=== PATIENT | male | born 1960 | race Caucasian/White ===

== ENCOUNTER → 2023-05-27 09:20 | Outpatient (REF) | payer BC, SELFPAY | LOC: HWRAD 09:20 | PROVIDERS: ATTENDING PHYSICIAN Specialist; FAMILY PHYSICIAN Nurse Practitioner Family | DX: R35.1 Nocturia (principal); R31.29 Other microscopic hematuria | CPT/HCPCS: 76770 ==

== ENCOUNTER 2023-07-12 06:48 | Day surgery (SDC) | payer BC, SELFPAY ==
[2023-07-06 08:15] VITALS: BMI 31.8
[2023-07-06 08:56] LABS: Urine Albumin Negative (Neg - Trace); Urine Bilirubin Negative (Negative); Urine Character Clear (Clear); Urine Color Yellow; Urine Glucose Negative (Negative); Urine Ketone Negative (Negative); Urine Leukocyte Negative (Negative); Urine Nitrite Negative (Negative); Urine Occult Blood Negative (Negative); Urine Urobilinogen Negative (Neg - 1+)
[2023-07-06 09:19] LABS: INR 1.04; PT 13.6 Sec (11.4-14.6)
[2023-07-06 09:20] LABS: APTT 26.7 Sec (23.4-35.0)
[2023-07-12] VITALS (17 sets, daily range): BP systolic 108–163; BP diastolic 72–100; BMI 31.8
[2023-07-12 08:04] LABS: Urine Albumin Negative (Neg - Trace); Urine Bilirubin Negative (Negative); Urine Character Clear (Clear); Urine Color Yellow; Urine Glucose Negative (Negative); Urine Ketone Negative (Negative); Urine Leukocyte Negative (Negative); Urine Nitrite Negative (Negative); Urine Occult Blood Negative (Negative); Urine Urobilinogen Negative (Neg - 1+)
[2023-07-12] MEDS: NORMOSOL-R 1000 IV (09:50)
[2023-07-12 10:55] LABS: Hematocrit 37.1 % (39.0-52.0); Hemoglobin 13.2 g/dL (13.0-18.0)
[2023-07-12] MEDS: DETROL LA 4 MG PO (12:01)
[2023-07-12] MEDS: VALIUM INJECTION 5 MG IV ×3 (12:02→23:14)
--- NOTE | 2023-07-12 12:08 | W.SUR.POST ---
Surgical Immediate Post Op
Note
Pre Op Diagnosis:
bph hematuria
Post Op Diagnosis:
Procedure Performed: turp
Primary Surgeon:
flashner
Secondary Surgeons:
Anesthesia: general dr seymour
Estimated Blood [id number]:
Fluids:
Drains/Shunts:[address] [place]
Specimens/Cultures:
Doppler/Duplex/Angio (Y/N):
Complications: friable prostae hematiria on every resecrion
Operative Findingsrt adenoma friable prostate:
--- NOTE | 2023-07-12 12:10 | W.PN.URO.CBU ---
Today's Communication / Plan
-
try and slow down cbi if acble by am
Assessment / Plan
-
stable post op turp c/o sp[asms vss will try iv valium and detrol cbi runningclear
Diagnosis
-
Date of Service: July 12, 2023
-
Patient Diagnosis:
Post Op Day: p[ost op check s/ p turp
Subjective
-
bladder spaslms with fioley yurine clear
Objective
-
Vital Signs
Temp Pulse Resp BP Pulse Ox
97.6 F 64 16 117/80 97
07/12/23 11:42 07/12/23 12:00 07/12/23 12:00 07/12/23 12:00 07/12/23 12:00
Laboratory Results
07/12/23 10:45
Review of Systems
-
: Other (bladder spasms)
Physical Exam
-
General - well developed, well nourished, no acute distress
Chest - clear bilaterally
Abdomen - soft, non-tender, positive bowel sounds, no CVAT, no incisional pain or distention
Genitalia - normal
Rectal - normal
Skin - warm & dry with no rash
Neuro - AOx3, no motor deficits
Extremities - no clubbing, no cyanosis, no edema
Incision - clean, dry
Dressing - clean, dry, intact
--- NOTE | 2023-07-12 12:22 | SUR.PHASEI ---
patient with urge to void and defecate, multiple and repeat explanation of catheter and traction to [place] - normal to have this urge, patient placed on bedpan at his insistance, insists to get OOB, explained why he cannot, medicated with valium and
detrol - CBI outflow crystal clear,
[2023-07-12] MEDS: DILAUDID 0.5 MG IV (12:27)
--- NOTE | 2023-07-12 12:53 | SUR.PHASEI ---
1250 - patient continues to be agitated, wants to get OOB ' I have to shit'. Again explained - early to be OOB and no bathrooms in pacu. medicated with dilaudid for discomfort, slept briefly, Dr Hector updated and 10cc of fluid removed from [place]
balloon.. Slept with dilaudid and seems less agitated more comfortable - states he is not. CBI outflow continues to be crystal clear.
--- NOTE | 2023-07-12 12:56 | SUR.PHASEI ---
patient's - Samantha called and updated and advised holding for room assignment
[2023-07-12] MEDS: LR 1000 IV (13:08)
[2023-07-12] MEDS: DILAUDID 0.25 MG IV (13:10)
--- NOTE | 2023-07-12 13:29 | SUR.PHASEI ---
Dr Hector spoke with patient x3, re- explained and reinforced that sensation to void and defecate normal. Medicated again for pain. sleeps after med. Less agitated, vss, CBI infusing slowly and remains crystal clear with traction off and CBI
slowed.
[2023-07-12] MEDS: LEVAQUIN 100 IV (14:42)
[2023-07-12] MEDS: MILK OF MAGNESIA 30 ML PO (14:55)
[2023-07-12] MEDS: PROSCAR 5 MG PO (14:55)
[2023-07-12] MEDS: TYLENOL 650 MG PO (22:07)
[2023-07-13] MEDS: LR 1000 IV (02:09)
[2023-07-13 03:35] VITALS: BP 113/56
[2023-07-13] MEDS: TYLENOL 650 MG PO ×2 (04:42→12:02)
[2023-07-13 05:20] LABS: Hematocrit 36.5 % (39.0-52.0); Hemoglobin 13.3 g/dL (13.0-18.0)
[2023-07-13 07:35] VITALS: BP 147/97
[2023-07-13] MEDS: PROSCAR 5 MG PO (08:47)
[2023-07-13] MEDS: PERCOCET 5/325 2 TABLET PO (08:50)
--- NOTE | 2023-07-13 09:18 | W.DCSUMMARY ---
Discharge Summary
Discharge Data
Date of Admission: 07/12/23
Date of Discharge: 07/13/23
Total time spent discharging patient (in min): 25
-
Pending Results: No
Discharge Plan
-
Patient Disposition: Home (Routine Discharge)
Discharge Diagnosis/Procedures: bph urinary retention
Condition: Good
Diet: No restrictions
Activity: Other activity
Additional Activity: no ;lifting over 210 lbs for 10 days
Driving Restrictions: As prior to admission
Referrals:
Osei Decker CRNP [Family Provider] -
Regulo Hector MD [Active] - (caLL DR HECTOR [phone] FOR QUESTIONS mAKE APPT 6 WEEKS [ SOONER IF PROBLEMS ] )
Prescriptions:
Continued
finasteride 5 mg Tablet
5 mg PO DAILY
albuterol sulfate [ProAir HFA] 90 mcg/actuation Hfa Aerosol Inhaler
2 puff INHALATION Q6H PRN (Reason: ALLERGIES)
fluticasone propionate 110 mcg/actuation Hfa Aerosol Inhaler
1 puff INHALATION PRN PRN (Reason: ASTHMA)
Discharge Orders:
Discharge Patient (As Directed); Ordered 07/13/23
Ordered By: Regulo Hector
Discharge Date and Time
Print Language: ECUADOREAN
--- NOTE | 2023-07-13 09:20 | W.DCSUMMARY ---
Discharge Summary
Discharge Data
Date of Admission: 07/12/23
Date of Discharge: 07/13/23
-
Pending Results: No
Hospital Course
pt has bph Underwent uneventful turp hgb stabke non toxic urine clear plan to re,move [place] and d/c once voids
Discharge Plan
-
Patient Disposition: Home (Routine Discharge)
Discharge Diagnosis/Procedures: bph urinary retention
Condition: Good
Diet: No restrictions
Activity: Other activity
Additional Activity: no ;lifting over 210 lbs for 10 days
Driving Restrictions: As prior to admission
Referrals:
Osei Decker CRNP [Family Provider] -
Regulo Hector MD [Active] - ([facility] DR [facility]ECTOR [phone] FOR QUESTIONS mAKE APPT 6 WEEKS [ SOONER IF PROBLEMS ] )
Prescriptions:
Continued
finasteride 5 mg Tablet
5 mg PO DAILY
albuterol sulfate [ProAir HFA] 90 mcg/actuation Hfa Aerosol Inhaler
2 puff INHALATION Q6H PRN (Reason: ALLERGIES)
fluticasone propionate 110 mcg/actuation Hfa Aerosol Inhaler
1 puff INHALATION PRN PRN (Reason: ASTHMA)
Discharge Orders:
Discharge Patient (As Directed); Ordered 07/13/23
Ordered By: Regulo Hector
Discharge Date and Time
Print Language: BENGALI
[2023-07-13 11:55] VITALS: BP 137/89
[2023-07-13] MEDS: LR IV (12:00)
--- NOTE | 2023-07-13 14:11 | CM ---
Patient discharged prior to initial assessment completion. Patient has been medically cleared for discharge to home. Per MD, no additional skilled services required. Patient has arranged for transport home.
== END 2023-07-13 13:05 | disposition home or self-care (01) ==
LOC: SDS 06:48
PROVIDERS: ATTENDING PHYSICIAN Specialist; FAMILY PHYSICIAN Nurse Practitioner Family
DX: N40.1 Benign prostatic hyperplasia with lower urinary tract symptoms (principal); N13.9 Obstructive and reflux uropathy, unspecified; Z98.890 Other specified postprocedural states
CPT/HCPCS: 53854; 36415; 81003; 85014; 85018; 85610; 85730; 86850; 86900; 86901; 87086; 93005

== ENCOUNTER → 2024-03-16 13:07 | Outpatient (REF) | payer BC, SELFPAY | LOC: HWRAD 13:07 | PROVIDERS: ATTENDING PHYSICIAN Internal Medicine Critical Care Medicine; FAMILY PHYSICIAN Nurse Practitioner Family | DX: R91.1 Solitary pulmonary nodule (principal) | CPT/HCPCS: 71250 ==

== ENCOUNTER → 2024-10-15 06:41 | Outpatient (REF) | payer BC, SELFPAY | LOC: HWRAD 06:41 | PROVIDERS: ATTENDING PHYSICIAN Family Medicine | DX: M54.16 Radiculopathy, lumbar region (principal); R07.81 Pleurodynia | CPT/HCPCS: 71101; 72110 ==

== ENCOUNTER 2025-03-02 12:06 | Emergency (ER) | payer MEDICARE, OTHER, SELFPAY ==
[2025-03-02 12:06] VITALS: BMI 29.5
[2025-03-02 12:22] VITALS: BP 120/89
--- NOTE | 2025-03-02 12:40 | ED.GENMED ---
History of Present Illness
General
Chief Complaint: Chest Pain
Time Seen by Provider: 03/02/25 12:32
History of Present Illness
History of Present Illness:
Is a 65-year-old male with past medical history of BPH who presents complaining of left-sided chest pain that began last night and has been ongoing now for over 12 hours. Pain began it was associated with 'heartburn' and subsequently 1 episode of
nausea and vomiting. Heartburn has subsided but reports sharp left-sided chest pain that is nonradiating and not worsened by anything. No recent heavy lifting or trauma.
Phy Exam
General Physical Exam
General Presentation: well appearing and no apparent distress
General Skin: warm and dry
General Habitus: normal
General Mental: alert
General Hydration: appears well hydrated
ENT Exam
ENT Exam: EOMI, pharynx normal, neck supple and normocephalic
Eye Exam
Eye Exam: PERRL, cornea clear and conjunctiva normal
Cardiovascular Exam
Cardiovascular Exam: regular rate/rhythm, no edema, no murmur and normal peripheral pulses
Pulmonary Exam
Pulmonary Exam: lungs clear, no respiratory distress, no rales, no crackles, no rhonchi, no stridor, no wheezing and no cough
Gastrointestinal Exam
Gastrointestinal Exam: normal bowel sounds, non tender, soft, no organomegaly, no pulsatile mass and non distended
Neurological Exam
Neurological Exam: alert, oriented x3, no motor deficits and speech normal
Musculoskeletal Exam
Musculoskeletal Exam: full ROM and no edema
Skin Exam
Skin Exam: normal color, warm/dry, no rash and no petechia
Psychiatric Exam
Psychiatric Exam: normal mood/affect
Scores
Heart Score for Chest Pain Patients
STEMI patient?: No
History: Slightly or Non-Suspicious
ECG: Normal
Age: >/= 65 years
Risk Factors: No Risk Factors
Troponin: </= Normal Limit
Heart Score for Chest Pain Patients: 2
Heart Score Risk: 2.5% MACE over next 6 weeks
Course
Orders/Labs/Results
Orders:
Orders
03/02/25 12:10
Electrocardiogram (*1) Urgent
Reason for Study: Chest Pain
EKG- Treatment ONCE
03/02/25 12:36
Complete Blood Count/With Diff Urgent
Comprehensive Metabolic Panel Urgent
Troponin I Urgent
03/02/25 12:41
Mag Hydrox/Al Hydrox/Simeth [Maalox] 30 ml Phenobarb/Hyoscy/Atropine/Scop [] 10 ml Viscous Lidocaine 2% [Xylocaine Viscous Cup] 10 ml PO NOW
03/02/25 13:03
Mag Hydrox/Al Hydrox/Simeth [Maalox] 30 ml .ROUTE .STK-MED ONE
Phenobarb/Hyoscy/Atropine/Scop [] 10 ml .ROUTE .STK-MED ONE
Viscous Lidocaine 2% [Xylocaine Viscous Cup] 15 ml .ROUTE .STK-MED ONE
Abnormal Lab Results
03/02/25
12:36
RBC 4.61 L 10^6/uL
(4.70-6.10)
MCH 31.2 H pg
(27.0-31.0)
Abs Immat Gran (auto) 0.1 H 10^3/uL
(0-0.05)
Absolute Monos (auto) 0.7 H 10^3/uL
(0.1-0.6)
Immature Gran % 0.7 H %
(0-0.5)
Monocytes % 10.2 H %
(1.7-9.3)
Eosinophils % 6.1 H %
(0-6)
Glucose 100 H mg/dl
(70-99)
ALT 58 H U/L
(0-50)
03/02/25 12:36
03/02/25 12:36
Vital Signs
Initial and Last Documented VS:
Initial Vital Signs
Temp Pulse Resp BP Pulse Ox
36.7 C 87 16 120/89 98
03/02/25 12:22 03/02/25 12:22 03/02/25 12:22 03/02/25 12:22 03/02/25 12:22
Last Documented Vital Signs
Temp Pulse Resp BP Pulse Ox
36.7 C 69 21 122/84 98
03/02/25 12:22 03/02/25 13:15 03/02/25 13:15 03/02/25 13:00 03/02/25 12:40
MDM/Problems Addressed
Differential Diagnosis Includes:
EKG normal sinus rhythm. CBC without leukocytosis or anemia. BMP normal limits. Troponin negative. And that pain has been ongoing for over 12 hours at this point second troponin is not indicated. Patient was given a GI cocktail with improvement
in his pain. Never had any reflux type symptoms before but given history medications pain is likely related to GERD. Discussed supportive measures with patient. Prescription for Pepcid is also sent to his pharmacy. He will follow-up with his
primary care physician regarding this. Return precautions discussed.
*Pulse Oximetry
SaO2: 98
Oxygen Mode of Delivery: Room air
Patient hypoxic: no
*Critical Care Note
Total Time (30-74mins, 75-104mins- exclusive of procedures): Not Applicable
ED Attending Note
-
Portions of this chart may have been created with voice recognition software.� Occasional wrong word or��sound alike� substitutions may have occurred due to the inherent limitations of voice recognition software.
Discharge Plan
Departure
Patient Disposition: Home (Routine Discharge)
Date of Disposition: 03/02/25
Time of Disposition: 13:57
Patient with high blood pressure during this ER visit?: No
Discharge Problem:
Chest pain due to GERD, GERD (gastroesophageal reflux disease)
Instructions: Acid Reflux and GERD in Adults (DC)
Prescriptions:
New
famotidine [Pepcid] 40 mg tablet
40 mg PO DAILY Qty: 10 0RF
No Action
finasteride 5 mg Tablet
5 mg PO DAILY
albuterol sulfate [ProAir HFA] 90 mcg/actuation Hfa Aerosol Inhaler
2 puff INHALATION Q6H PRN (Reason: ALLERGIES)
fluticasone propionate 110 mcg/actuation Hfa Aerosol Inhaler
1 puff INHALATION PRN PRN (Reason: ASTHMA)
Activity Restrictions/Additional Instructions:
A prescription for Pepcid has been sent to your pharmacy. You can take this daily or as needed. Important follow-up with your primary care physician regarding reflux. Return to the ER if you develop any new or worsening chest pain shortness of
breath or any concerning symptoms.
Interventions
Interventions:
*General Assessment Last Done: 03/02/25 12:10
*Neglect/Abuse Screening Last Done: 03/02/25 12:10
*ED COVID-19 Vaccine History Last Done: 03/02/25 12:10
*ED Influenza Vaccine History Last Done: 03/02/25 12:10
[facility] Risk Assessment Tool Last Done: 03/02/25 12:06
*Risk Screen - Suicide (C-SSRS) Last Done: 03/02/25 12:10
*Nursing Disposition Last Done: 03/02/25 13:29
ED- Cardiac Assessment Last Done: 03/02/25 12:30
Discharge Date and Time
Print Language: CYMRO
[2025-03-02 12:41] VITALS: BP 120/85
[2025-03-02 12:49] LABS: Hematocrit 41.4 % (39.0-52.0); Hemoglobin 14.4 g/dL (13.0-18.0); Mean Corp Hgb Conc. 34.8 g/dL (33.0-37.0); Mean Corpuscular Volume 89.8 fL (80.0-94.0); Nucleated Red Blood Cells % 0 % (-); Platelet Count 256 10^3/uL (130-400); Red Cell Dist. Width 12.2 % (11.5-14.5)
[2025-03-02 13:00] VITALS: BP 122/84
[2025-03-02] MEDS: MAALOX 50 PO (13:04)
[2025-03-02 13:06] LABS: ALT (SGPT) 58 U/L (0-50); AST (SGOT) 37 U/L (17-59); Albumin 4.0 g/dl (3.5-5.0); Alkaline Phosphatase 60 U/L (38-126); Blood Urea Nitrogen 20 mg/dl (9-20); Calcium 9.5 mg/dl (8.4-10.2); Carbon Dioxide 24 mmol/L (22-30); Chloride 106 mmol/L (98-107); Estimated Creatinine Clearance 115 ml/min; Glucose 100 mg/dl (70-99); Potassium 4.0 mmol/L (3.5-5.1); Sodium 136 mmol/L (135-145); Total Protein 6.9 g/dl (6.3-8.2); eGFR > 60.00
[2025-03-02 13:17] LABS: Troponin I < 0.012 ng/ml
[2025-03-02 13:30] VITALS: BP 132/89
== END 2025-03-02 13:59 | disposition home or self-care (01) ==
LOC: EMR 12:06
PROVIDERS: EMERGENCY PHYSICIAN Emergency Medicine; FAMILY PHYSICIAN Nurse Practitioner Family
DX: K21.9 Gastro-esophageal reflux disease without esophagitis (principal); N40.0 Benign prostatic hyperplasia without lower urinary tract symptoms
CPT/HCPCS: 99284; 80053; 84484; 85025; 93005